=== PATIENT | male | born 2000 | race Two or more races ===

== ENCOUNTER 2022-02-15 13:40 | Emergency (ER) | payer MEDICAID ==
[~2022-02-15] VITALS: Ht 182.9 cm; Wt 76.3 kg
[2022-02-15 13:53] VITALS: BP 132/77
== END 2022-02-15 20:50 | disposition left against medical advice (07) ==
LOC: ER 13:54
DX: N50.812 Left testicular pain (principal); Z53.21 Procedure and treatment not carried out due to patient leaving prior to being seen by health care provider

== ENCOUNTER 2023-05-23 10:39 | Emergency (ER) | payer MEDICAID ==
[~2023-05-23] VITALS: Ht 185.4 cm; Wt 73.2 kg
[2023-05-23] MEDS ORDERED: HYDR-4902 PO (13:20)
[2023-05-23 13:34] VITALS: PULSE 92; RESP 20; O2SAT 96
[2023-05-23] MEDS: HYDROcodone-ACET 10/325MG TAB PO ONE (13:45)
[2023-05-23 14:39] VITALS: BP 121/80; PULSE 99; RESP 16; TEMP 98.1; O2SAT 96
== END 2023-05-23 14:42 | disposition home or self-care (01) ==
LOC: ER 10:39
DX: S42.032A Displaced fracture of lateral end of left clavicle, initial encounter for closed fracture (principal); S00.81XA Abrasion of other part of head, initial encounter; F12.10 Cannabis abuse, uncomplicated; W01.0XXA Fall on same level from slipping, tripping and stumbling without subsequent striking against object, initial encounter; Y93.89 Activity, other specified; Y92.89 Other specified places as the place of occurrence of the external cause; Y99.8 Other external cause status
CPT/HCPCS: 70450; 70486; 73000

== ENCOUNTER 2023-07-09 21:45 | Emergency (ER) | payer MEDICAID ==
[~2023-07-09] VITALS: Ht 185.4 cm; Wt 73.9 kg
[~2023-07-09 21:45] MED LIST: HYDR-4902 PO
[2023-07-10] MEDS ORDERED: AMOX875T3 PO (00:30)
[2023-07-10 00:40] VITALS: BP 130/85; PULSE 70; RESP 20; TEMP 98; O2SAT 97
[2023-07-10] MEDS: KETOROLAC TROMETH 30 MG/ML 1ML VIAL IM ONE (00:55)
== END 2023-07-10 00:59 | disposition home or self-care (01) ==
LOC: ER 21:45
DX: H66.91 Otitis media, unspecified, right ear (principal); R51.9 Headache, unspecified; F12.10 Cannabis abuse, uncomplicated
CPT/HCPCS: 96372; 99283; J1885

== ENCOUNTER 2023-08-07 19:09 | Emergency (ER) | payer MEDICAID ==
[~2023-08-07] VITALS: Ht 182.9 cm; Wt 75.9 kg
[~2023-08-07 19:09] MED LIST changes: +AMOX875T3 PO
[2023-08-07 19:38] VITALS: BP 141/88; PULSE 93; RESP 16; O2SAT 96
[2023-08-07] MEDS ORDERED: CYCL-837 PO (23:49)
[2023-08-07] MEDS ORDERED: IBUP-1456 PO (23:49)
[2023-08-07] MEDS: ACETAMINOPHEN 325 MG TAB PO ONE (23:52)
== END 2023-08-08 01:23 | disposition home or self-care (01) ==
LOC: ER 19:09
DX: S62.397A Other fracture of fifth metacarpal bone, left hand, initial encounter for closed fracture (principal); S16.1XXA Strain of muscle, fascia and tendon at neck level, initial encounter; S00.12XA Contusion of left eyelid and periocular area, initial encounter; S80.212A Abrasion, left knee, initial encounter; S80.211A Abrasion, right knee, initial encounter; R51.9 Headache, unspecified; F15.90 Other stimulant use, unspecified, uncomplicated; Z98.890 Other specified postprocedural states; Z79.899 Other long term (current) drug therapy; V43.62XA Car passenger injured in collision with other type car in traffic accident, initial encounter; Y93.89 Activity, other specified; Y92.411 Interstate highway as the place of occurrence of the external cause; Y99.8 Other external cause status
CPT/HCPCS: 29125; 70450; 70486; 72125; 73130

== ENCOUNTER 2024-04-08 14:31 | Emergency (ER) | payer MEDICAID, OTHER ==
[~2024-04-08 14:31] MED LIST changes: -AMOX875T3 PO; -HYDR-4902 PO; +IBUP-1456 PO
== END 2024-04-08 19:35 | disposition left against medical advice (07) ==
LOC: ER 14:31
DX: R50.9 Fever, unspecified (principal); Z53.21 Procedure and treatment not carried out due to patient leaving prior to being seen by health care provider

== ENCOUNTER 2025-01-21 14:30 | Emergency (ER) | payer MEDICAID ==
[~2025-01-21] VITALS: Ht 182.9 cm; Wt 80.6 kg
--- NOTE | 2025-01-21 16:39 | ED.PDOC ---
Back pain HPI HPI Comments A 24 YEAR OLD MALE PRESENTS TO THE ED WITH COMPLAINT OF BACK PAIN . PT STATES HE WAS GETTING UP FROM SITTING POSITION AND HIT HIS R LOWER BACK INTO THE CORNER OF A TABLE YESTERDAY. PT HAS BEEN HAVING INCREAASING PAIN TO THE R LOWER BACK AND PT CAME TO THE ED FOR FURTHER EVALUATION. PATIENT DENIES FEVER, CHILLS, SHORTNESS OF BREATH, CHEST PAIN, ABDOMINAL PAIN, NAUSEA, VOMITING, HEADACHE, OR OTHER COMPLAINTS. NO OTHER SYMPTOMS OR MODIFYING FACTORS AT THIS TIME. PATIENT IS ALERT, ORIENTED X 4, AND HAS STEADY GAIT. Chief Complaint: Back Pain Time Seen by MD: 16:35 Primary Care Provider: JANINA Hawley Notes: Nurses Notes, Medications, Allergies Allergies: Coded Allergies: NO KNOWN ALLERGIES (Unverified , 09/17/11) Home Meds Active Scripts Methocarbamol (Methocarbamol) 750 Mg Tab, 750 MG PO BID, #20 TAB Prov:DAISY MENDOZA 01/21/25 Ibuprofen (Ibuprofen) 800 Mg Tab, 1 TAB PO TID, #30 TAB Prov:DAISY MENDOZA 01/21/25 Ibuprofen (Ibuprofen) 800 Mg Tab, 1 TAB PO TID PRN, #30 TAB 0 Refills Prov:GABRIELE FENG 08/07/23 Information Source: Patient Mode of Arrival: Ambulatory Brought in by: SELF Timing: Days Duration: Since onset Location of Back pain: (R) Lumbar, (R) Thoracic Onset: Bending, Lifing Modifying Factors: Movement, Twisting Associated signs and symptoms: None Past Medical History PAST MEDICAL HISTORY: Denies Surgical History: Denies all surgeries Family History Family History: Unknown Social History Smoker: Non-Smoker Alcohol: Occasionally Drugs: Marijuana Lives In: Home Constitutional: denies: chills, diaphoresis, fatigue, fever, malaise, sweats, weakness, others EENTM: denies: blurred vision, double vision, ear bleeding, ear discharge, ear drainage, ear pain, ear ringing, eye pain, eye redness, hearing loss, mouth pa in, mouth swelling, nasal discharge, nose bleeding, nose congestion, nose pain, photophobia, tearing, throat pain, throat swelling, voice changes, others Respiratory: denies: cough, hemoptysis, orthopnea, SOB at rest, shortness of breath, SOB with excertion, stridor, wheezing, others Cardiovascular: denies: chest pain, dizzy spells, diaphoresis, Dyspnea on exertion, edema, irregular heart beat, left arm pain, lightheadedness, palpitations, PND, syncope, others Gastrointestinal: denies: abdomen distended, abdominal pain, blood streaked bowels, constipated, diarrhea, dysphagia, difficulty swallowing, hematemesis, melena, nausea, poor appetite, poor fluid intake, rectal bleeding, rectal pain, vomiting, others Genitourinary: denies: burning, dysuria, flank pain, frequency, hematuria, incontinence, penile discharge, penile sore, pain, testicle pain, testicle swelling, urgency, others Neurological: denies: dizziness, fainting, headache, left sided numbness, left sided weakness, numbness, paresthesia, pre-existing deficit, right sided numbness, right sided weakness, seizure, speech problems, tingling, tremors, weakness, others Musculoskeletal: reports: back pain, muscle pain; denies: gout, joint pain, joint swelling, muscle stiffness, neck pain, others Integumetry: denies: bruises, change in color, change in hair/nails, dryness, laceration, lesions, lumps, rash, wounds, others Allergic/Immunocompromised: denies: Difficulty Healing, Frequent Infections, Hives, Itching, others Hematologic/Lymphatic: denies: anemia, blood clots, easy bleeding, easy bruising, swollen glands, others Endocrine: denies: excessive hunger, excessive sweating, excessive thirst, excessive urination, flushing, intolerance to cold, intolerance to heat, unexplained weight gain, unexplained weight loss, others Psychiatric: denies: anxiety, bipolar disorder, depression, hopeless, panic disorder, schizophrenia, sleepless, suicidal, others All Other Systems: Reviewed and Negative Physical Exam General Appearance: No Apparent Distress, Normal HEENT: Normal ENT Inspection, PERRL/EOMI, Pharynx Normal, TMs Normal Neck: Full Range of Motion, Non-Tender, Normal, Normal Inspection Respiratory: Chest Non-Tender, Lungs Clear, No Accessory Muscle Use, No Respiratory Distress, Normal Breath Sounds Cardiovascular: No Edema, No JVD, No Murmur, No Gallop, Normal Peripheral Pulses, Regular Rate/Rhythm Breast Exam: Deferred Gastrointestinal: No Organomegaly, Non Tender, No Pulsatile Mass, Normal Bowel Sounds, Soft Genitalia: Deferred Pelvic: Deferred Rectal: Deferred Extremities: No calf tenderness, Normal capillary refill, Normal inspection, Normal range of motion, Non-tender, No pedal edema Musculoskeletal : Location: Bilateral Extremity Location: Back Apperance: Tenderness (AND MUSCLE SPASM ON LOWER BACK, NO BONY TENDERNESS, SWELLING AND DEFORMITY, NORMAL ROM. 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 Was a procedure done?: No Back Pain Differential Dx Differential Diagnosis: Musculoskeletal Pain Other Differential Diagnosis LUMBAR RADICULOPATHY, MUSCLE SPASM, LUMBAR STRAIN X-Ray, Labs, Meds, VS Vital Signs Date Time Temp Pulse Resp B/P (MAP) Pulse Ox O2 Delivery O2 Flow Rate FiO2 01/21/25 17:24 97.9 66 15 126/78 (94) 99 97.9 01/21/25 17:24 66 15 99 Room Air 01/21/25 14:32 97.3 80 15 126/85 98 97.3 [place] [address] Ph: [phone] DIAGNOSTIC IMAGING Diagnostic Imaging Report : [id number] Signed PATIENT: ALTA SHEETS ACCT: [id number] UNIT: [id number] : 2000 LOC: ER ROOM / BED: / AGE / SEX: 24 / M ADM STATUS: REG ER SERVICE [id number] ORDERING PHYSICIAN: DAISY MENDOZA PROCEDURE(s): LUMB2 - LUMBAR SPINE 3 VIEW REASON: INJURY ORDER NUMBER(s): [id number], ACCESSION NUMBER(s): [id number] CLINICAL INDICATION: INJURY TECHNIQUE: 2 radiographic views of the lumbar spine were obtained. Comparison: None FINDINGS/IMPRESSION: There is no evidence of acute fracture or spondylolisthesis. Vertebral body heights are maintained. No significant degenerative changes. Moderate amount of fecal material within the visualized colon. ATED BY: IMANI FITZGERALD DO DICTATED DATE/TIME: 01/21/251702 SIGNED BY: IMANI FITZGERALD DO SIGNED DATE/TIME: 01/21/251702 CC: X-Ray, Labs, Meds, VS Comment COURSE: EXTERNAL MEDICAL RECORDS REVIEWED: [NONE] INDEPENDENT HISTORIANS: [NONE] SOCIAL DETERMINANTS OF HEALTH: [NONE] LABS ORDERED: NONE REVIEWED AND INTERPRETED RESULTS: NONE IMAGING ORDERED: LUMBAR SPINE X-RAY TREATMENTS ORDERED: PROCEDURES PERFORMED: NONE CRITICAL CARE TIME: NONE I HAVE DISCUSSED THE PATIENT WITH THE ATTENDING PHYSICIAN DR. ASCENCIO AND HE AGREES WITH THE PATIENT'S PLAN OF CARE AND DISPOSITION. BASED ON HISTORY OF PRESENT ILLNESS, AND PHYSICAL EXAM, PATIENT WILL BE DISCHARGED HOME. DISCUSSED PLAN FOR DISCHARGE HOME WITH RX []. MEDICATION WARNINGS GIVEN. SHARED DECISION MAKING: DISCUSSED WITH PATIENT THAT THEIR WORKUP WAS NORMAL. PATIENT INSTRUCTED TO FOLLOW UP WITH PRIMARY CARE PROVIDER IN 1-2 DAYS FOR RE- EVALUATION OF SYMPTOMS. PATIENT VERBALIZES UNDERSTANDING TO RETURN TO ED FOR NEW OR WORSENING SYMPTOMS OR IF FOLLOW UP WITH PCP CANNOT BE OBTAINED. PATIENT FEE LS COMFORTABLE GOING HOME AT THIS TIME. ALL QUESTIONS ADDRESSED AT TIME OF DISCHARGE. Time of 1ST Reevaluation: 17:20 Reevaluation 1ST: Improved Patient Education/Counseling: Diagnosis, Treatment, Need For Follow Up Family Education/Counseling: Diagnosis, Treatment, No Family Present Medical Screening: No EMC Exist At This Time SEPSIS Sepsis Screen Date sepsis recognized/suspect: Jan 21, 2025 Time Sepsis recognized/suspect: 1434 Recent Procedure: No On Antibiotic Therapy: No Respiratory Rate >20: No Heart Rate >90: No Temp<36 C (96.8 F) or >38.3 C: No SBP <90 or MAP <65 mmHG: No New Acute Mental Status Change: No Is the patient on CPAP, BIPAP,: No Physician Orders Lumbar Spine 3 View (01/21/25 16:17) Vital Signs Date Time Temp Pulse Resp B/P (MAP) Pulse Ox O2 Delivery O2 Flow Rate FiO2 01/21/25 17:24 97.9 66 15 126/78 (94) 99 97.9 01/21/25 17:24 66 15 99 Room Air 01/21/25 14:32 97.3 80 15 126/85 98 97.3 Departure 1 Departure Time of Disposition: 17:20 Impression: Primary Impression: Lumbar spine strain Qualified Codes: S39.012A - Strain of muscle, fascia and tendon of lower back, initial encounter Disposition: HOME / SELF CARE / HOMELESS Condition: Stable Additional Instructions: INSTRUCTIONS: FOLLOW-UP WITH PCP IN 1 TO 2 DAYS. TAKE MEDICATIONS PRESCRIBED. RETURN TO ED FOR ANY NEW OR WORSENING SYMPTOMS. e-Prescriptions Methocarbamol (Methocarbamol) 750 Mg Tab 750 MG PO BID, #20 TAB Prov: DAISY MENDOZA 01/21/25 Ibuprofen (Ibuprofen) 800 Mg Tab 1 TAB PO TID, #30 TAB Prov: DAISY MENDOZA 01/21/25 Discharged With: Self Critical Care Note Critical Care Time?: No Stability Stability form required: No Heart Score Heart Score: Heart Score Response (Comments) Value History N/A 0 EKG N/A 0 Age N/A 0 Risk Factors N/A 0 Troponin N/A 0 Total 0 I personally scribed for DAISY MENDOZA ([email or web address]) on 01/21/25 at 16:39. Electronically submitted by Paco Lucero ([email or web address]). I personally scribed for DAISY MENDOZA ([email or web address]) on 01/21/25 at 17:10. Electronically submitted by Paco Lucero ([email or web address]). DAISY MENDOZA Jan 21, 2025 16:39
--- NOTE | 2025-01-21 17:05 | DVH ---
CLINICAL INDICATION: INJURY TECHNIQUE: 2 radiographic views of the lumbar spine were obtained. Comparison: None FINDINGS/IMPRESSION: There is no evidence of acute fracture or spondylolisthesis. Vertebral body heights are maintained. No significant degenerative changes. Moderate amount of fecal material within the visualized colon.
[2025-01-21] MEDS ORDERED: IBUP-1456 PO (17:17)
[2025-01-21] MEDS ORDERED: METH-1182 PO (17:17)
[2025-01-21 17:24] VITALS: BP 126/78; PULSE 66; RESP 15; TEMP 97.9; O2SAT 99
== END 2025-01-21 17:25 | disposition home or self-care (01) ==
LOC: ER 14:30
DX: S39.012A Strain of muscle, fascia and tendon of lower back, initial encounter (principal); W22.03XA Walked into furniture, initial encounter; Y93.89 Activity, other specified; Y92.89 Other specified places as the place of occurrence of the external cause; Y99.8 Other external cause status
CPT/HCPCS: 72100